=== PATIENT | female | born 1960 | race Caucasian/White ===

== ENCOUNTER 2019-01-15 09:05 | Day surgery (SDC) | payer OTHER, SELFPAY ==
[2019-01-14 11:56] VITALS: BMI 23.7
--- NOTE | 2019-01-15 12:14 | CT ---
CT-guided hepatic biopsy: 01/15/2019 HISTORY: 58-year-old female with numerous liver masses. TECHNIQUE: Signed informed consent obtained. Patient placed supine on CT table. The following procedure was perf ormed under step CT guidance. Skin at midline upper abdomen prepared and draped in usual sterile fashion. 25-gauge needle used to apply buffered lidocaine superficially and deeply. 17-gauge introduc er needle advanced into left lobe of the liver at midline slightly to the left of the falciform ligament at hepatic segment IVb. 18-gauge biopsy needle advanced in coaxial fashion through introduce r needle. Biopsy gun fired, yielding 3.2 cm long tissue sample. This was divided into and placed into separate slides, and given to the pathologist. Preliminary touch preparation analysis demonstrat es adequate tissue with malignancy visualized. Introducer needle was removed, and compression was held. There was no bleeding or any other complication. Patient tolerated the procedure well. Postcont rast scan demonstrates no hematoma. IMPRESSION: 1.) Technically successful 18-gauge core biopsy of one of the hepatic masses. 2) preliminary results are positive for malignancy.
== END 2019-01-15 14:30 | disposition home or self-care (01) ==
LOC: CT 09:05
PROVIDERS: ATTEND Internal Medicine Hematology & Oncology
PROC: BF251ZZ Computerized Tomography (CT Scan) of Liver using Low Osmolar Contrast (ICD-10-PCS; principal; 2019-01-15)
PROC: 0FB23ZX Excision of Left Lobe Liver, Percutaneous Approach, Diagnostic (ICD-10-PCS; principal; 2019-01-15)
DX: C78.7 Secondary malignant neoplasm of liver and intrahepatic bile duct (principal); C80.1 Malignant (primary) neoplasm, unspecified; I10 Essential (primary) hypertension; Z79.1 Long term (current) use of non-steroidal anti-inflammatories (NSAID)
CPT/HCPCS: 47000; 77012; 88307; 88333; 88334; 88341; 88342

== ENCOUNTER 2019-01-21 11:28 | Outpatient (CLI) | payer OTHER, SELFPAY ==
--- NOTE | 2019-01-21 12:33 | CT ---
CT Chest W Con HISTORY: Colon cancer with liver metastases. COMPARISON: CT of abdomen and pelvis dated 01/05/2019 study. FINDINGS: The lungs are clear of any infiltrative process. There is a tiny 5 mm groundglass nodule wi thin the right lower lobe. There is no significant mediastinal, hilar or axillary adenopathy. Multiple liver masses are again demonstrated. The abdomen findings have been previously described. Review of osseous structures show no lytic or blastic bony change. IMPRESSION: 1. Small 5 mm groundglass nodule within the right lower lobe. 2. Hepatic metastatic disease.
== END 2019-01-21 11:29 | disposition home or self-care (01) ==
LOC: CT 11:28
PROVIDERS: ATTEND Internal Medicine Hematology & Oncology
DX: C18.9 Malignant neoplasm of colon, unspecified (principal); C78.7 Secondary malignant neoplasm of liver and intrahepatic bile duct; R91.1 Solitary pulmonary nodule
CPT/HCPCS: 71260

== ENCOUNTER 2019-01-27 11:37 | Outpatient (CLI) | payer SELFPAY ==
[2019-01-27 14:04] LABS: #Basophils 0.1 thou/uL (0.0-0.2); #Eosinphils 0.3 thou/uL (0.0-0.7); #Lymphocytes 1.8 thou/uL (1.20-3.40); #Monocytes 1.3 thou/uL (0.11-0.59); #Neutrophils 13.4 thou/uL (1.40-6.50); %Basophils 0.5 % (0.0-1.0); %Eosinophils 1.9 % (0.0-10.0); %Lymphocytes 10.6 % (21.0-51.0); %Monocytes 7.9 % (0.0-10.0); %Neutrophils 79.1 % (42.0-75.0); Hemoglobin 10.6 g/dL (12.0-16.0); Mean Corpuscular HGB CONC 32.5 g/dL (32.0-36.0); Mean Corpuscular Hemoglobin 29.2 pg (27.0-31.0); Mean Platelet Volume 8.1 fL (7.4-10.4); Platelet Count 543 thou/uL (130-400); RBC Distribution Width 14.6 % (11.5-14.5); Red Blood Cell (RBC) Count 3.61 mill/uL (4.20-5.40); White Blood Cell (WBC) Count 16.9 thou/uL (4.8-10.8)
[2019-01-27 14:21] LABS: Anion Gap 15 mmol/L (10-20); BUN (Urea Nitrogen) 13 mg/dL (9.8-20.1); Calc. Creatinine Clearance 0 mL/min (70-130); Calcium 9.3 mg/dL (7.8-10.44); Carbon Dioxide 24 mmol/L (22-29); Chloride 101 mmol/L (98-107); Estimated GFR-MDRD 79; Glucose 105 mg/dL (70-105); Potassium 4.4 mmol/L (3.5-5.1); Sodium 136 mmol/L (136-145)
== END 2019-01-27 11:38 | disposition home or self-care (01) ==
LOC: LABBT 11:37
PROVIDERS: ATTEND Specialist
DX: Z01.812 Encounter for preprocedural laboratory examination (principal); C78.7 Secondary malignant neoplasm of liver and intrahepatic bile duct; C18.9 Malignant neoplasm of colon, unspecified
CPT/HCPCS: 80048; 85025

== ENCOUNTER 2019-01-27 14:49 | Day surgery (SDC) | payer SELFPAY ==
[2019-01-27] MEDS ORDERED: Ferumoxytol (NON ERSD) 510 MG in Sodium Chloride 0.9% 250 ML 150 ML IVPB SCH (15:30)
[2019-01-27 16:18] VITALS: BP 124/66; TEMP 97.9
== END 2019-01-27 17:04 | disposition home or self-care (01) ==
LOC: ONC/OP 14:49
PROVIDERS: ATTEND Internal Medicine Hematology & Oncology
DX: Z51.11 Encounter for antineoplastic chemotherapy (principal); C18.2 Malignant neoplasm of ascending colon; C78.7 Secondary malignant neoplasm of liver and intrahepatic bile duct
CPT/HCPCS: 96365; J7050; Q0138

== ENCOUNTER 2019-02-03 09:32 | Day surgery (SDC) | payer SELFPAY ==
[2019-02-03] MEDS ORDERED: Lidocaine 1% PF 5 ML VIAL ONE (15:53)
[2019-02-03] MEDS ORDERED: PROPOFOL 200 MG/20 ML VIAL ONE (15:53)
--- NOTE | 2019-02-03 18:44 | OP ---
DATE OF PROCEDURE: 02/03/2019 PROCEDURES PERFORMED: Colonoscopy with biopsy and submucosal injection/tattoo placement. 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 DESCRIPTION OF PROCEDURE: After the risks and benefits of the procedure were explained to the patient including risks of bleeding, infection, perforation, reactions to anesthesia, aspiration, and/or pain, informed consent was obtained. The patient was then taken to the endoscopy suite, where deep sedation was administered via propofol and anesthesia support. Once adequate sedation was achieved, a digital rectal examination was performed followed by introduction of the standard colonoscope into the rectum and advanced with difficulty to the cecum secondary to redundancy of the colon and tortuosity of the colon. The quality of the prep was excellent. The patient tolerated the procedure well with no immediate perioperative complications. Upon conclusion of the procedure, all equipment was removed from the patient, and she was transferred to Day Stay in satisfactory condition. FINDINGS: Digital rectal exam: Normal findings were seen on external examination. Colon findings: Normal-appearing mucosa was seen at the appendiceal orifice, ileocecal valve, and within the cecum itself. However, a large colonic mass was seen in the distal ascending colon/hepatic flexure occupying approximately 60% to 70% of the colonic lumen. The mass itself was difficult to measure given that it was extending around the curve of the colon, but I would estimate at approximately 3 to 4 cm in diameter, possibly more. Multiple biopsies were taken from this mass and placed in a specimen jar for evaluation. Tattoo placement was then performed on both the proximal and distal ends of the mass for future reference and/or possible surgical resection if needed in the future. Otherwise normal-appearing mucosa was seen in the transverse colon, descending colon, sigmoid colon, and rectum. There were no additional polyps seen in any of the these areas. On rectal retroflexion, normal findings were also seen as well. IMPRESSION: 1. A large ascending colon/hepatic flexure mass, strongly suggestive of colonic malignancy, status post biopsy and tattoo placement. 2. Otherwise normal colonoscopy. RECOMMENDATIONS: 1. We would follow up on the biopsy results with further colonoscopy interval depending on pathology report and the patient's tolerance to chemotherapy for this metastatic colonic carcinoma. 2. We would follow with the patient's general surgeon for MediPort placement later this week. 3. We would defer to Oncology Service for further management of this colonic malignancy. 4. Follow up in the GI clinic as needed. Job ID: [id number]
== END 2019-02-03 13:25 | disposition home or self-care (01) ==
LOC: SDC 09:32
PROVIDERS: ATTEND Internal Medicine
PROC: 0DBL8ZX Excision of Transverse Colon, Via Natural or Artificial Opening Endoscopic, Diagnostic (ICD-10-PCS; principal; 2019-02-03)
PROC: 3E0H8GC Introduction of Other Therapeutic Substance into Lower GI, Via Natural or Artificial Opening Endoscopic (ICD-10-PCS; principal; 2019-02-03)
DX: C18.3 Malignant neoplasm of hepatic flexure (principal); C78.7 Secondary malignant neoplasm of liver and intrahepatic bile duct; Z91.018 Allergy to other foods
CPT/HCPCS: 88305

== ENCOUNTER 2019-02-05 07:43 | Day surgery (SDC) | payer OTHER, SELFPAY ==
[2019-02-02 15:35] VITALS: BMI 21.9
[2019-02-05] MEDS ORDERED: Ketorolac Tromethamine 30 MG/ML VIAL ONE (08:46)
[2019-02-05] MEDS ORDERED: Lidocaine 2% PF 5 ML VIAL ONE (09:07)
[2019-02-05] MEDS ORDERED: Bupivacaine/Epinephrine 0.25% 30 ML VIAL ONE (09:07)
--- NOTE | 2019-02-05 11:00 | RAD ---
Exam: Chest one view HISTORY:Post Mediport evaluation Comparison: None FINDINGS: Lungs: Mild bibasilar interstitial densities. Small round density overlying right lower chest most li gonzalo relates to a nipple shadow. Cardiac silhouette:Accentuated by portable technique Pulmonary vessels: Normal Pleural Spaces: Clear Pneumothorax: None Right chest port is present with tip overlying SVC region. Osseous abnormalities: None of acuity. IMPRESSION: No postprocedural pneumothorax of significance identified.
--- NOTE | 2019-02-05 15:24 | OP ---
DATE OF PROCEDURE: 02/05/2019 PREOPERATIVE DIAGNOSIS: Metastatic colon cancer. POSTOPERATIVE DIAGNOSIS: Metastatic colon cancer. PROCEDURE PERFORMED: Placement of right subclavian low-profile power compatible MediPort. ANESTHESIA: Total intravenous anesthesia with local using 0.25% Marcaine with epinephrine. INDICATIONS: The patient is a 58-year-old white female recently diagnosed with metastatic colon cancer. She presents at this time for MediPort placement for chemotherapy administration. DESCRIPTION OF OPERATION: Informed consent was obtained. The patient was taken to the operating room where total intravenous anesthesia was obtained with the patient in supine position. Right periclavicular area was prepped with ChloraPrep and draped in sterile fashion. Local anesthetic was infiltrated and a large-gauge needle was passed under the clavicle in the subclavian vein. Guidewire was passed through the needle and fluoroscopically confirmed to enter the superior vena cava. Additional local anesthetic was infiltrated and transverse incision was created based on needle insertion site. A subcutaneous pocket was dissected inferiorly. Introducer dilator was passed over the guidewire under fluoroscopic guidance. The guidewire and dilator were removed, and the catheter was passed through the introducer. The tip of the catheter was positioned at the atriocaval junction and the catheter was trimmed to the appropriate length and secured to the locking hub of the MediPort. The port was then placed in the subcutaneous pocket where it was secured to the pectoral fascia with 2 interrupted sutures of 3-0 Prolene. The incision was then closed in layers with 3-0 and 4-0 Monocryl. Additional local anesthetic was infiltrated. The port was cannulated with a Pimentel needle and it aspirated blood freely and was flushed with heparinized saline. Dermabond was placed externally on the skin incision. There were no complications. Blood loss was negligible. The patient tolerated the procedure well and was taken to recovery room in stable condition. FINDINGS: A low-profile port was selected secondary to the patient's thin body habitus. It was placed uneventfully into the right subclavian vein. There was no blood loss nor any problems with placement. Job ID: [id number]
== END 2019-02-05 11:46 | disposition home or self-care (01) ==
LOC: SDC 07:43
PROVIDERS: ATTEND Specialist
PROC: 05H533Z Insertion of Infusion Device into Right Subclavian Vein, Percutaneous Approach (ICD-10-PCS; principal; 2019-02-05)
DX: C18.9 Malignant neoplasm of colon, unspecified (principal); C78.7 Secondary malignant neoplasm of liver and intrahepatic bile duct; E03.9 Hypothyroidism, unspecified; Z79.899 Other long term (current) drug therapy
CPT/HCPCS: 71045; C1788; J0131; J0690; J1642; J1885; J2001

== ENCOUNTER 2019-02-09 13:17 | Day surgery (SDC) | payer OTHER ==
[~2019-02-09 13:17] MED LIST: IRON SUCROSE COMPLEX IVPB SCH; SODIUM CHLORIDE 0.9% IVPB SCH
== END 2019-02-09 15:44 | disposition home or self-care (01) ==
LOC: ONC/OP 13:17
PROVIDERS: ATTEND Internal Medicine Hematology & Oncology
DX: C18.2 Malignant neoplasm of ascending colon (principal); C78.7 Secondary malignant neoplasm of liver and intrahepatic bile duct
CPT/HCPCS: 96365; J1756; J3490

== ENCOUNTER 2019-02-12 09:16 | Day surgery (SDC) | payer OTHER ==
[~2019-02-12 09:16] MED LIST changes: +Bevacizumab 400 MG in Sodium Chloride 0.9% 84 ML IVPB SCH; +DEXTROSE 5% IVPB SCH; +Dexamethasone 10 MG in Sodium Chloride 0.9% 50 ML IVPB SCH; +FLUOROURACIL IVPB SCH; -IRON SUCROSE COMPLEX IVPB SCH; +LEUCOVORIN CALCIUM IVPB SCH; +OXALIPLATIN IVPB SCH; +Ondansetron HCl/PF 15 MG in Sodium Chloride 0.9% 50 ML IVPB SCH; +Ondansetron HCl/PF 15 MG, Dexamethasone Sod Phosphate 10 MG in Sodium Chloride 0.9% 50 ML IVPB SCH; -SODIUM CHLORIDE 0.9% IVPB SCH; +Sodium Chloride 0.9% 30 ML ONE; +WATER IVPB SCH
[2019-02-12 10:19] VITALS: BP 108/59; TEMP 98.4
== END 2019-02-12 15:57 | disposition home or self-care (01) ==
LOC: ONC/OP 09:16
PROVIDERS: ATTEND Internal Medicine Hematology & Oncology
DX: Z51.11 Encounter for antineoplastic chemotherapy (principal); C78.7 Secondary malignant neoplasm of liver and intrahepatic bile duct; C18.2 Malignant neoplasm of ascending colon; Z91.018 Allergy to other foods
CPT/HCPCS: 96366; 96375; 96413; 96415; 96417; J0640; J1100; J2405; J7070; J9190; J9263